=== PATIENT | male | born 1950 | race Caucasian/White ===

== ENCOUNTER 2020-06-01 11:01 | Emergency (ER) | payer MEDICARE ==
[~2020-06-01] VITALS: Ht 180.3 cm; Wt 62.1 kg
[2020-06-01] MEDS ORDERED: acetaminophen 325mg tablet PO ONE (11:35)
--- NOTE | 2020-06-01 11:38 | NUR ---
Spoke with POA daughter Richi Epstein stated pt is comfort care and a DNR, she doent want any medications or scans done on pt and should have been relayed by [facility]. Moe KEE states he is a DNR signed by pt. Richi stated pt has dementia and is unable to make decisions for self. richi stated on way to ed with POA paperwork and to relay to provider code status. Notified Deidre GARCIA
[2020-06-01] MEDS ORDERED: morphine 4 MG/ML inj SYRINge IV ONE (12:25)
[2020-06-01 12:36] VITALS: BP 90/50
--- NOTE | 2020-06-01 12:50 | NUR ---
SPOKE WITH [facility] PER [facility] AND REQUESTED THEY TO START COMFORT CARE ORDERS PER FAMILY.
== END 2020-06-01 13:57 ==
LOC: ER 11:03
DX: J12.9 Viral pneumonia, unspecified (principal); Z51.5 Encounter for palliative care; R41.0 Disorientation, unspecified; F03.90 Unspecified dementia, unspecified severity, without behavioral disturbance, psychotic disturbance, mood disturbance, and anxiety; Z88.8 Allergy status to other drugs, medicaments and biological substances
CPT/HCPCS: 71045; 96374; 99284; J2270